=== PATIENT | female | born 1940 | race Caucasian/White ===

== ENCOUNTER 2017-10-20 14:28 | Outpatient (CLI) | payer MEDICARE ==
--- NOTE | 2017-10-20 15:06 | RAD ---
LUMBAR SPINE BENDING MINIMUM 4 VIEWS: Date: 10/20/17 HISTORY: Spondylolisthesis of lumbosacral region. COMPARISON: None. FINDINGS: There is posterior spinal fusion of L2-L4 with transpedicular screws and interconnecting rods. Diskec timoteo and spacers present at L2-3 in a normal location. There is Grade I L4 over L5 anterolisthesis due to facet arthropathy and degenerative changes. No sig nificant translation with flexion or extension. There is advanced degenerative disc space height loss at L1-2, as well as retrolisthesis due to degenerative disc space disease. No significant translatio n with flexion or extension. IMPRESSION: Spondylosis without significant translation with flexion or extension. POS: IVONE
== END 2017-10-20 14:29 | disposition home or self-care (01) ==
LOC: RAD 14:28
PROVIDERS: ATTEND Specialist
DX: M43.17 Spondylolisthesis, lumbosacral region (principal); M47.896 Other spondylosis, lumbar region
CPT/HCPCS: 72120

== ENCOUNTER 2019-02-13 11:17 | Day surgery (SDC) | payer MEDICARE ==
[2019-02-12 13:26] VITALS: BMI 26.7
[2019-02-13] MEDS ORDERED: Sodium Chloride 0.9% 100 ML ONE (12:27)
[2019-02-13] MEDS ORDERED: CEFAZOLIN 1 GM VIAL ONE (12:27)
[2019-02-13] MEDS ORDERED: Fentanyl 100 MCG/2 ML VIAL ONE (13:15)
[2019-02-13] MEDS ORDERED: Bupivacaine HCl 0.5%/Epinephrine 1:200,000/PF 30 ml Vial ONE (13:16)
[2019-02-13] MEDS ORDERED: Levofloxacin 500 mg/D5W 100 ml Premix Bag ONE (13:23)
[2019-02-13] MEDS ORDERED: Clindamycin/D5W 900 mg/50 ml Premix Bag ONE (13:23)
[2019-02-13] MEDS ORDERED: Bupivacaine PF 0.5% 30 ML VIAL ONE (13:49)
--- NOTE | 2019-02-13 20:50 | OP ---
DATE OF PROCEDURE: 02/13/2019 PREOPERATIVE DIAGNOSES: 1. Chronic pain syndrome. 2. Postlaminectomy syndrome. 3. Lumbar radiculopathy. POSTOPERATIVE DIAGNOSES: 1. Chronic pain syndrome. 2. Postlaminectomy syndrome. 3. Lumbar radiculopathy. PROCEDURE PERFORMED: Spinal cord stimulator battery revision. BLOOD LOSS: None. COMPLICATIONS: None. DESCRIPTION OF PROCEDURE: The patient was taken to the procedure room, placed prone on the procedure room table. A time-out was performed. The back was prepped with DuraPrep and sterile drapes were applied. We anesthetized the previous scar over the battery with 0.5% Marcaine plain. We used a 10 blade scalpel to make an incision and blunt dissected this down to the battery pocket. The battery was removed easily. We then blunt dissected laterally towards the left flank of the patient to create a pocket approximately 2 to 3 inches lateral to the previous pocket. We then slid the battery into this. We tied sutures around the battery so it would not move from the pocket. We then used bipolar cautery to take up the scar tissue from the previous battery pocket. We then used 2-0 Vicryl to approximate the fascia in layers in simple interrupted fashion. We used a 3-0 Rapide Vicryl stitch in a subcuticular fashion to approximate the skin and we used Dermabond too as an occlusive dressing. Sterile 4x4s were placed over that once Dermabond was allowed to dry, and the patient was taken to the PACU under stable condition. Job ID: [id number]
== END 2019-02-13 15:25 | disposition home or self-care (01) ==
LOC: SDC 11:17
PROVIDERS: ATTEND Specialist
PROC: 0JWT0MZ Revision of Stimulator Generator in Trunk Subcutaneous Tissue and Fascia, Open Approach (ICD-10-PCS; principal; 2019-02-13)
DX: G89.4 Chronic pain syndrome (principal); M96.1 Postlaminectomy syndrome, not elsewhere classified; M54.16 Radiculopathy, lumbar region; I10 Essential (primary) hypertension; E78.5 Hyperlipidemia, unspecified; I25.10 Atherosclerotic heart disease of native coronary artery without angina pectoris; I48.91 Unspecified atrial fibrillation; E11.9 Type 2 diabetes mellitus without complications; E03.9 Hypothyroidism, unspecified; M48.061 Spinal stenosis, lumbar region without neurogenic claudication; M43.17 Spondylolisthesis, lumbosacral region; M46.1 Sacroiliitis, not elsewhere classified; Z79.01 Long term (current) use of anticoagulants; Z79.84 Long term (current) use of oral hypoglycemic drugs; Z79.899 Other long term (current) drug therapy; Z88.0 Allergy status to penicillin; Z88.1 Allergy status to other antibiotic agents; Z88.5 Allergy status to narcotic agent; Z91.041 Radiographic dye allergy status; Z95.5 Presence of coronary angioplasty implant and graft
CPT/HCPCS: 36416; J0670; J0690; J1956; J3010; J3490; S0020

== ENCOUNTER 2019-06-19 10:49 | Day surgery (SDC) | payer MEDICARE ==
[2019-06-18 11:27] VITALS: BMI 26.1
[2019-06-19 11:29] LABS: #Basophils 0.1 thou/uL (0.0-0.2); #Eosinphils 0.1 thou/uL (0.0-0.7); #Lymphocytes 1.8 thou/uL (1.20-3.40); #Monocytes 0.6 thou/uL (0.11-0.59); #Neutrophils 4.5 thou/uL (1.40-6.50); %Basophils 0.9 % (0.0-1.0); %Eosinophils 0.8 % (0.0-10.0); %Lymphocytes 25.4 % (21.0-51.0); %Monocytes 8.3 % (0.0-10.0); %Neutrophils 64.6 % (42.0-75.0); Hemoglobin 12.9 g/dL (12.0-16.0); Mean Corpuscular HGB CONC 32.5 g/dL (32.0-36.0); Mean Corpuscular Hemoglobin 34.4 pg (27.0-31.0); Mean Platelet Volume 7.9 fL (7.4-10.4); Platelet Count 214 thou/uL (130-400); RBC Distribution Width 13.8 % (11.5-14.5); Red Blood Cell (RBC) Count 3.75 mill/uL (4.20-5.40); White Blood Cell (WBC) Count 6.9 thou/uL (4.8-10.8)
[2019-06-19 11:33] LABS: INR-International Normal Ratio 1.1; Prothrombin Time 14.5 SEC (12.0-14.7)
[2019-06-19 11:34] LABS: PTT 39.8 SEC (22.9-36.1)
[2019-06-19] MEDS ORDERED: PROPOFOL 200 MG/20 ML VIAL ONE (11:34)
[2019-06-19] MEDS ORDERED: Lidocaine 1% PF 5 ML VIAL ONE (11:34)
[2019-06-19] MEDS ORDERED: EPINEPHrine 1 MG/ML AMP ONE (12:32)
[2019-06-19] MEDS ORDERED: Bupivacaine PF 0.5% 30 ML VIAL ONE (12:32)
[2019-06-19] MEDS ORDERED: Levofloxacin 500 mg/D5W 100 ml Premix Bag ONE (12:39)
[2019-06-19] MEDS ORDERED: Midazolam HCl 2 mg/2 ml Vial ONE (12:40)
[2019-06-19] MEDS ORDERED: Fentanyl 100 MCG/2 ML VIAL ONE (12:40)
[2019-06-19] MEDS ORDERED: Propofol 500 MG/50 ML VIAL ONE (12:45)
[2019-06-19] MEDS ORDERED: Thrombin 5000 UNITS/5 ML VIAL ONE (13:32)
--- NOTE | 2019-06-19 21:15 | OP ---
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 PREOPERATIVE DIAGNOSES: 1. Postlaminectomy syndrome. 2. Lumbar radiculopathy. 3. Chronic pain syndrome. POSTOPERATIVE DIAGNOSES: 1. Postlaminectomy syndrome. 2. Lumbar radiculopathy. 3. Chronic pain syndrome. PROCEDURE PERFORMED: Spinal cord stimulator battery revision, [id number]. SPECIMENS: No specimens removed. BLOOD LOSS: Minimal. DESCRIPTION OF PROCEDURE: The patient was taken to the procedure room, placed prone on the procedure room table. A time-out was performed. The back was prepped with ChloraPrep. Sterile drapes were applied. Using fluoroscopy, we located the anchor site of the paddle lead. We anesthetized the skin and made a vertical incision. Blunt dissected this down to the wires. We blunt dissected the scar tissue from the wires. We then anesthetized the battery pocket. We made an incision and blunt dissected this down to the battery, removed the battery easily, used a torque wrench to remove the wires from the battery and then pulled the wires up to the anchor site. A site was chosen on the right upper buttock for the new battery site. This was anesthetized with 0.5% Marcaine with epinephrine. I used a 10 blade scalpel to make an incision and blunt dissected this down the Guillermina fascia. We then dissected inferiorly and superiorly to make the battery pocket. We used a tunneling device to make a tunnel between the anchor site and the new battery site. We brought the leads through this tunneling device to the battery site. We connected into the battery and torqued down the leads to assure they were fixated to the battery. We checked all impedances, which were good. We placed the battery inside the pocket. We then used 2-0 Vicryl suture in simple interrupted fashion to approximate all fascial layers. We then used 3-0 Rapide Vicryl for subcuticular stitch. We used Dermabond over this and allowed it to dry. Then placed sterile 4x4s and Medipore tape over each incision. The patient was taken to PACU under stable condition. Job ID: [id number]
== END 2019-06-19 15:50 | disposition home or self-care (01) ==
LOC: SDC 10:49
PROVIDERS: ATTEND Specialist
PROC: 0JWT0MZ Revision of Stimulator Generator in Trunk Subcutaneous Tissue and Fascia, Open Approach (ICD-10-PCS; principal; 2019-06-19)
DX: M96.1 Postlaminectomy syndrome, not elsewhere classified (principal); M51.17 Intervertebral disc disorders with radiculopathy, lumbosacral region; G89.4 Chronic pain syndrome; M48.061 Spinal stenosis, lumbar region without neurogenic claudication; M43.16 Spondylolisthesis, lumbar region; M43.17 Spondylolisthesis, lumbosacral region; M46.1 Sacroiliitis, not elsewhere classified; G90.522 Complex regional pain syndrome I of left lower limb; M19.90 Unspecified osteoarthritis, unspecified site; Z79.01 Long term (current) use of anticoagulants; Z79.84 Long term (current) use of oral hypoglycemic drugs; Z79.899 Other long term (current) drug therapy; Z88.0 Allergy status to penicillin; Z88.1 Allergy status to other antibiotic agents; Z88.5 Allergy status to narcotic agent; Z91.041 Radiographic dye allergy status
CPT/HCPCS: 36415; 76000; 85025; 85610; 85730; J0171; J1956; J2001; J2250; J2704; J3010; J3370; S0020

== ENCOUNTER 2019-08-10 07:27 | Day surgery (SDC) | payer MEDICARE ==
[2019-08-09 16:10] VITALS: BMI 26.1
[2019-08-10] MEDS ORDERED: diphenhydrAMINE 50 MG/ML VIAL ONE (08:06)
[2019-08-10] MEDS ORDERED: diphenhydrAMINE 25 MG CAP ONE (08:07)
[2019-08-10 08:50] VITALS: BP 163/97; TEMP 97.7
[2019-08-10] MEDS ORDERED: Iopamidol-M 200 41% 20 ML VIAL ONE (09:57)
--- NOTE | 2019-08-10 10:02 | RAD ---
PROCEDURE: XR Myelogram Lumbar Spine PROVIDED CLINICAL HISTORY: Spondylolisthesis of lumbosacral region. Patient reports low back pain and left lower extremity pain. History of prior low back surgery. COMPARISON: None TECHNIQUE: The procedure including the risks and complications were explained to the patient, and informed conse nt was obtained. The patient was placed on the fluoroscopy table in the prone position. An area overlying the level of the L3 vertebral body was marked, and the area was then meticulously prepped a nd draped in usual sterile fashion. Skin and subcutaneous tissues were infiltrated with buffered 1% lidocaine for local anesthesia. A 22-gauge spinal needle was advanced into the thecal sac. The inner stylette was removed with a return of clear cerebral spinal fluid. Approximately 8 mL of Isovue-M 200 was instilled into the thecal sac under fluoroscopic guidance. The inner stylette was replaced, and the needle was removed. Hemostasis was achieved with direct pressure, and a dry sterile dressing was placed. The patient tolerated the procedure well and without immediate complication. The patient was transpor colette to CT for additional imaging of the lumbar spine. Patient was then transported to radiology nurses holding area for further monitoring prior to discharge. Fluoroscopy: Time-0.4 minutes Dose-72.9 microGy meter squared IMPRESSION: 1. Technically successful fluoroscopic-guided lumbar myelogram. 2. Postoperative and degenerative changes lumbar spine. There are bipedicular screws and posterior ro ds transfixing the L2-3 and L3-4 levels with intradiscal prosthesis seen at the L2-3 level. 3. Dorsal column stimulater device is noted in place overlying the lower thoracic spine. 4. Vascular calcifications are seen in the abdominal aorta and iliac arteries. 5. Please see CT lumbar spine for further details.
--- NOTE | 2019-08-10 10:22 | CT ---
CT lumbar spine without contrast: HISTORY: Low back pain and left lower extremity pain COMPARISON: No prior CT exams of the lumbar spine available FINDINGS: There are areas of parenchymal scarring and atelectasis at each lung base. Vascular calcifications ar e seen in the abdominal aorta and involving the iliac arteries. A calculus measuring 2.8 cm is present within the limited visualized decompressed gallbladder. There is colonic diverticulosis. A dorsal column stimulator device is noted in place with leads entering at the T11-12 level and ascen ding in the posterior aspect of the central canal lower thoracic spine. Tip is not imaged. Postoperative changes lumbar spine related to posterior fusion are noted. Bipedicular screws and post erior rods transfix the L2-3 and L3-4 levels. Intradiscal cage is present at the L2-3 intervertebral disc space. No hardware complication is appreciated. Laminectomy defects are seen exte nding from the L1-2 level to the L3-4 level. There is slight retrolisthesis of L1 on L2. Vacuum phenomenon is seen in the intervertebral disc spaces at multiple levels. Vertebral body heights are w ithin normal limits. Conus medullaris terminates at the L1-2 level. L1-2: Loss of intervertebral disc height with vacuum phenomenon. Mild endplate degenerative changes a re seen. Slight retrolisthesis of L1 on L2 is present. Facet degenerative changes are noted. A mild broad-based disc osteophyte complex is present eccentrically greater on the left. There is slight eff acement of the left anterolateral aspect of the thecal sac at this level. Neural foramina are patent. L2-3: Postoperative changes at this level result in streak artifact. This limits evaluation of the le ft neural foramen. Right neural foramen and central spinal canal are patent. Soft tissue density seen posterior to thecal sac is likely due to scarring. Although the left neural foramen is not well evaluated, no definite bony encroachment is seen. L3-4: Loss of intervertebral disc height. Broad-based disc osteophyte complex is present. Soft tissue density posterior to thecal sac is likely attributable to scarring. Central spinal canal and neural foramina are patent. L4-5: Loss of intervertebral disc height with vacuum phenomenon at this level. Moderate facet hypertr ophic changes and ligamentous thickening are present at this level. Broad-based disc osteophyte complex is present. Boin-co-agzcoqbl central canal narrowing is present with [id number] right-s ided neural foraminal narrowing. The left neural foramen is patent. L5-S1: Loss of intervertebral disc height with vacuum phenomenon in the intervertebral disc. Mild end plate degenerative changes are seen. Prominent facet hypertrophic changes are seen greater on the right. No significant disc bulge or disc herniation is identified. There is mild posterior osteophyte formation present greater on the right. Mild ligamentous thickening is present eccentrically greater on the right. A left laminotomy defect is present. Mild deformity of the thecal sac is presen t. Left neural foramen is patent, but there is [id number] right-sided neural foraminal narrowing. IMPRESSION: 1. Postoperative and degenerative changes of the lumbar spine. 2. Cholelithiasis.
== END 2019-08-10 10:30 | disposition home or self-care (01) ==
LOC: RAD 07:27
PROVIDERS: ATTEND Specialist
PROC: B00B1ZZ Plain Radiography of Spinal Cord using Low Osmolar Contrast (ICD-10-PCS; principal; 2019-08-10)
DX: M43.17 Spondylolisthesis, lumbosacral region (principal); M96.1 Postlaminectomy syndrome, not elsewhere classified; M46.1 Sacroiliitis, not elsewhere classified; K80.20 Calculus of gallbladder without cholecystitis without obstruction; E11.9 Type 2 diabetes mellitus without complications; E03.9 Hypothyroidism, unspecified; Z79.84 Long term (current) use of oral hypoglycemic drugs; Z79.899 Other long term (current) drug therapy; Z88.0 Allergy status to penicillin; Z88.5 Allergy status to narcotic agent; Z88.1 Allergy status to other antibiotic agents; Z91.041 Radiographic dye allergy status
CPT/HCPCS: 62304; 72132; J1200; Q0163; Q9966

== ENCOUNTER 2020-03-06 08:32 | Outpatient (CLI) | payer MEDICARE ==
--- NOTE | 2020-03-06 10:59 | CT ---
CT RIGHT ELBOW: Date: 03/06/2020 PROVIDED CLINICAL HISTORY: Abnormal radiograph. FINDINGS: Osteophyte formation is seen about the elbow. There is joint space narrowing involving the ulnar aspe cts of the ulnar-trochlear articulation. There is narrowing involving the trochlear-humeral articulat ion. There is a small elbow joint effusion. There is a large ossified intraarticular body within the olecranon recess, measuring at least 3.2 cm in craniocaudal dimension and approximately 2.7 x 1.8 cm in greatest transverse dimensions. This disp laces the triceps tendon and musculature posteriorly. A smaller intraarticular body is also present a t the radial aspect of the olecranon recess measuring about 3.0 mm. The regional soft tissues demonstrate an otherwise unremarkable unenhanced CT appearance with the exc eption of vascular calcification. No lytic or blastic bony lesions are seen. 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 POS: JUDY
== END 2020-03-06 08:33 | disposition home or self-care (01) ==
LOC: BICCT 08:32
PROVIDERS: ATTEND Orthopaedic Surgery Hand Surgery
DX: D16.9 Benign neoplasm of bone and articular cartilage, unspecified (principal); M19.021 Primary osteoarthritis, right elbow

== ENCOUNTER 2021-11-19 09:10 | Outpatient (CLI) | payer MEDICARE ==
[2021-11-19 10:27] LABS: #Eosinphils 0.1 10x3/uL (0.0-0.5); #Monocytes 0.5 10x3/uL (0.0-1.1); #Neutrophils 4.5 10x3/uL (1.5-8.4); %Basophils 0.4 % (0.0-2.0); %Eosinophils 1.8 % (0.0-6.0); %Lymphocytes 23.8 % (18.0-47.0); %Monocytes 7.6 % (0.0-10.0); %Neutrophils 66.3 % (40.0-75.0); Bilirubin Neg (Negative); Blood, Urine 150 (Negative); Clarity Slightly Cloudy (Clear); Glucose, Urine (Dipstick) 50 mg/dL (Negative); Hemoglobin 14.2 g/dL (12.0-15.5); Ketone, Urine 5 mg/dL (Negative); Leukocyte 500 (Negative); Mean Corpuscular HGB CONC 31.5 g/dL (32.0-36.0); Mean Corpuscular Hemoglobin 31.6 pg (27.0-33.0); Mean Corpuscular Volume 100.2 fl (81.6-98.3); Mean Platelet Volume 11.4 fl (7.4-10.4); Nitrite Negative (Negative); Platelet Count 219 10x3/uL (150-450); Protein, Urine (Dipstick) 30 mg/dl (Neg-Trace); RBC Distribution Width 14.6 % (11.5-14.5); Specific Gravity, Urine 1.025 (1.002-1.036); White Blood Cell (WBC) Count 6.8 10x3/uL (3.5-10.5)
[2021-11-19 10:39] LABS: Bacteria/HPF None Seen HPF (None Seen); RBC/HPF 0-3 HPF (0-3); WBC/HPF 0-3 HPF (0-3)
== END 2021-11-19 09:11 | disposition home or self-care (01) ==
LOC: LABBT 09:10
PROVIDERS: ATTEND Orthopaedic Surgery Hand Surgery
DX: Z01.818 Encounter for other preprocedural examination (principal); G56.01 Carpal tunnel syndrome, right upper limb; G56.21 Lesion of ulnar nerve, right upper limb; M19.031 Primary osteoarthritis, right wrist; M25.741 Osteophyte, right hand; M18.11 Unilateral primary osteoarthritis of first carpometacarpal joint, right hand; D16.01 Benign neoplasm of scapula and long bones of right upper limb; Z20.822 Contact with and (suspected) exposure to COVID-19
CPT/HCPCS: 81001; 85025; 87811; 93005; 93010

== ENCOUNTER 2021-11-24 06:01 | Day surgery (SDC) | payer MEDICARE ==
[2021-11-19 15:30] VITALS: BMI 27.1
[2021-11-24] MEDS ORDERED: Fentanyl 100 MCG/2 ML VIAL ONE (07:31)
[2021-11-24] MEDS ORDERED: Vancomycin 1 GM/200 ML BAG ONE (08:07)
[2021-11-24] MEDS ORDERED: fentaNYL Citrate/PF 100 MCG/2 ML SYRINGE ONE (08:10)
[2021-11-24] MEDS ORDERED: Phenylephrine 10 MG/ML VIAL ONE (08:11)
[2021-11-24] MEDS ORDERED: Ropivacaine 2% HCl/PF (20 MG/10 ML VIAL) ONE (08:29)
[2021-11-24] MEDS ORDERED: Lidocaine 1% PF 5 ML VIAL ONE (08:29)
[2021-11-24] MEDS ORDERED: Ropivacaine 0.5% HCl/PF (150 MG/30 ML VIAL) ONE (08:29)
[2021-11-24] MEDS ORDERED: PROPOFOL 200 MG/20 ML VIAL ONE (08:29)
[2021-11-24] MEDS ORDERED: Promethazine HCl 25 MG/ML VIAL IM PRN (08:30)
[2021-11-24] MEDS ORDERED: Ondansetron PF 4 MG/2 ML Vial IVP PRN (08:30)
[2021-11-24] MEDS ORDERED: Ropivacaine 0.2% 550 ML 550 ML NERVE BLCK SCH (08:30)
[2021-11-24] MEDS ORDERED: Ketorolac Tromethamine 30 MG/ML VIAL IVP PRN (08:30)
[2021-11-24] MEDS ORDERED: Zolpidem Tartrate 5 MG TAB PO PRN (08:30)
[2021-11-24] MEDS ORDERED: traMADol HCl 50 MG TAB PO PRN ×2 (08:30)
[2021-11-24] MEDS ORDERED: Neomycin-Polymyxin 1 ML AMP ONE (09:10)
[2021-11-24] MEDS ORDERED: Betamet Acet/Betamet Na Ph 30 MG/5 ML VIAL ONE (09:10)
[2021-11-24] MEDS ORDERED: Bacitracin Zinc Ointment 30 gm TUBE ONE (09:10)
== END 2021-11-24 16:53 | disposition home or self-care (01) ==
LOC: SDC 06:01
PROVIDERS: ATTEND Orthopaedic Surgery Hand Surgery
PROC: 01N50ZZ Release Median Nerve, Open Approach (ICD-10-PCS; principal; 2021-11-24)
PROC: 01N40ZZ Release Ulnar Nerve, Open Approach (ICD-10-PCS; 2021-11-24)
PROC: 0PBF0ZX Excision of Right Humeral Shaft, Open Approach, Diagnostic (ICD-10-PCS; 2021-11-24)
PROC: 0PBM0ZZ Excision of Right Carpal, Open Approach (ICD-10-PCS; 2021-11-24)
PROC: 0LX70ZZ Transfer Right Hand Tendon, Open Approach (ICD-10-PCS; 2021-11-24)
PROC: 0RUS07Z Supplement Right Carpometacarpal Joint with Autologous Tissue Substitute, Open Approach (ICD-10-PCS; 2021-11-24)
PROC: 3E0T3BZ Introduction of Anesthetic Agent into Peripheral Nerves and Plexi, Percutaneous Approach (ICD-10-PCS; 2021-11-24)
DX: M19.131 Post-traumatic osteoarthritis, right wrist (principal); G56.01 Carpal tunnel syndrome, right upper limb; D16.01 Benign neoplasm of scapula and long bones of right upper limb; G56.21 Lesion of ulnar nerve, right upper limb; M25.731 Osteophyte, right wrist; M18.11 Unilateral primary osteoarthritis of first carpometacarpal joint, right hand; I48.91 Unspecified atrial fibrillation; Z79.01 Long term (current) use of anticoagulants; Z79.890 Hormone replacement therapy; Z79.899 Other long term (current) drug therapy; Z88.0 Allergy status to penicillin; Z88.1 Allergy status to other antibiotic agents; Z88.5 Allergy status to narcotic agent; Z91.041 Radiographic dye allergy status
CPT/HCPCS: 24110; 25130; 25310; 25447; 64416; 64718; 64721; 73070; 73080; 73100; 76000; A4306; C1713 ×2; 88305; 88311; J0702; J2370; J2704; J2795; J3010; J3370

== ENCOUNTER 2022-07-06 10:15 | Outpatient (CLI) | payer MEDICARE | END 2022-07-06 10:16 | disposition home or self-care (01) | LOC: PET 10:15 | PROVIDERS: ATTEND Psychiatry & Neurology Neurology | DX: G30.9 Alzheimer's disease, unspecified (principal) | CPT/HCPCS: 78803; A9552 ==

== ENCOUNTER 2022-08-30 10:23 | Outpatient (CLI) | payer MEDICARE | END 2022-08-30 10:24 | disposition home or self-care (01) | LOC: BICRAD 10:23 | PROVIDERS: ATTEND Nurse Practitioner Family | DX: M48.061 Spinal stenosis, lumbar region without neurogenic claudication (principal); M47.816 Spondylosis without myelopathy or radiculopathy, lumbar region; Z98.1 Arthrodesis status | CPT/HCPCS: 72120 ==